=== PATIENT | male | born 1990 | race Caucasian/White ===

== ENCOUNTER 2021-06-20 21:43 | Emergency (ER) | payer OTHER ==
[~2021-06-20] VITALS: Ht 167.6 cm; Wt 83.9 kg
[2021-06-21 05:00] VITALS: BP 109/65
== END 2021-06-21 03:22 | disposition home or self-care (01) ==
LOC: EDBD 21:43 → ER 21:43
DX: S40.022A Contusion of left upper arm, initial encounter (principal); V58.0XXA Driver of pick-up truck or van injured in noncollision transport accident in nontraffic accident, initial encounter; Y93.89 Activity, other specified; Y92.410 Unspecified street and highway as the place of occurrence of the external cause; Y99.8 Other external cause status
CPT/HCPCS: 73030; 73090